=== PATIENT | male | born 1985 | race African-American/Black ===

== ENCOUNTER 2021-04-07 19:02 | Emergency (ER) | payer OTHER, SELFPAY ==
[~2021-04-07 19:02] MED LIST: Iopamidol 370 76% 100 ML VIAL ONE
[2021-04-07 19:20] LABS: #Basophils 0.1 thou/uL (0.0-0.2); #Eosinphils 0.3 thou/uL (0.0-0.7); #Lymphocytes 5.2 thou/uL (1.20-3.40); #Monocytes 0.7 thou/uL (0.11-0.59); #Neutrophils 4.4 thou/uL (1.40-6.50); %Basophils 0.5 % (0.0-1.0); %Monocytes 6.3 % (0.0-10.0); %Neutrophils 41.2 % (42.0-75.0); Hemoglobin 14.8 g/dL (14.0-18.0); Mean Corpuscular Hemoglobin 27.3 pg (27.0-31.0); Mean Corpuscular Volume 82.5 fL (78.0-98.0); Mean Platelet Volume 7.8 fL (7.4-10.4); Platelet Count 243 thou/uL (130-400); RBC Distribution Width 13.1 % (11.5-14.5); Red Blood Cell (RBC) Count 5.42 mill/uL (4.70-6.10); White Blood Cell (WBC) Count 10.6 thou/uL (4.8-10.8)
[2021-04-07] MEDS ORDERED: Lisinopril 10 MG TAB ONE (19:38)
[2021-04-07 19:41] LABS: ALT (SGPT) 21 U/L (8-55); AST (SGOT) 15 U/L (5-34); Alkaline Phosphatase 65 U/L (40-110); Anion Gap 13 mmol/L (10-20); BUN (Urea Nitrogen) 11 mg/dL (8.9-20.6); Bilirubin, Total 0.7 mg/dL (0.2-1.2); Calc. Creatinine Clearance 0 mL/min (70-130); Calcium 9.4 mg/dL (7.8-10.44); Carbon Dioxide 25 mmol/L (22-29); Chloride 105 mmol/L (98-107); Globulin 3.7 g/dL (2.4-3.5); Glucose 110 mg/dL (70-105); Lipase 52 U/L (8-78); Potassium 3.6 mmol/L (3.5-5.1); Protein, Total 7.7 g/dL (6.0-8.3); Sodium 139 mmol/L (136-145)
== END 2021-04-07 21:10 | disposition home or self-care (01) ==
LOC: ERS 19:02
DX: S32.019A Unspecified fracture of first lumbar vertebra, initial encounter for closed fracture (principal); S43.401A Unspecified sprain of right shoulder joint, initial encounter; V49.40XA Driver injured in collision with unspecified motor vehicles in traffic accident, initial encounter; I10 Essential (primary) hypertension
CPT/HCPCS: 71260; 72125; 74177; 80053; 83690; 85025; G0390; Q9967